=== PATIENT | female | born 2000 | race Two or more races ===

== ENCOUNTER 2024-11-23 01:08 | Emergency (ER) | payer OTHER ==
[~2024-11-23] VITALS: Ht 162.6 cm; Wt 69.7 kg
[2024-11-23 01:15] VITALS: BP 124/83; PULSE 113; RESP 18; TEMP 98.4; O2SAT 96
== END 2024-11-23 03:28 | disposition left against medical advice (07) ==
LOC: ER 01:08
DX: M54.59 Other low back pain (principal); Z53.21 Procedure and treatment not carried out due to patient leaving prior to being seen by health care provider